=== PATIENT | female | born 1970 | race Caucasian/White ===

== ENCOUNTER 2016-11-23 08:06 | Emergency (ER) | payer OTHER ==
[~2016-11-23] VITALS: Ht 157.4 cm
[~2016-11-23 08:06] MED LIST: AYGESTIN5 MG; CARVEDILOL25 MG; FLEXERIL5 MG PO; LISINOPRIL AND1 TA2 PO; LISINOPRIL40 MG; MOTRIN800 MG PO; PERCOCET 325 MG1 TAB PO; POTASSIUM595 MG; VERAPAMIL120 MG
[2016-11-23] MEDS ORDERED: VERAPAMIL HCL360 MG PO (08:23)
[2016-11-23] MEDS ORDERED: CITALOPRAM HYDR40 MG PO (08:23)
[2016-11-23 08:56] LABS: BASO % 0.5 % (0.0-1.0); HEMATOCRIT 35.7 % (37.0-47.0); HEMOGLOBIN 12.1 g/dl (12.0-16.0); IG # 0.1 10*3/uL (0.0-0.1); LYMPH # 1.2 10*3/uL (1.3-4.4); LYMPH % 15.5 % (27.0-41.0); MEAN CELL VOLUME 85.2 fl (81.0-99.0); MEAN CORPUSCULAR HGB 28.9 pg (27.0-31.0); MEAN CORPUSCULAR HGB CONC 33.9 g/dl (33.0-37.0); MEAN PLATELET VOLUME 8.8 fl (9.6-12.3); MONO # 0.3 10*3/uL (0.1-1.0); MONO % 3.7 % (3.0-9.0); NEUT % 79.6 % (47.0-73.0); PLATELET COUNT AUTOMATED 288 10*3/uL (130-400); RED BLOOD COUNT 4.19 10*6/uL (4.10-5.10); RED CELL DISTRI WIDTH 13.9 % (0-14.5); WHITE BLOOD COUNT 7.6 10*3/uL (4.8-10.8)
[2016-11-23 09:10] LABS: ALBUMIN 3.5 gm/dl (3.1-4.5); ALKALINE PHOSPHATASE 70 U/L (45-117); BILIRUBIN, TOTAL 0.3 mg/dl (0.2-1.0); BUN 11 mg/dl (7-24); CARBON DIOXIDE 29 mmol/L (21-32); CHLORIDE 101 mmol/L (98-107); EST GLOM FILT AFRICAN AMERICAN > 60 ml/min; GLUCOSE 129 mg/dL (65-99); POTASSIUM 3.9 mmol/L (3.5-5.1); SGOT/AST 16 IU/L (3-35); SGPT/ALT 18 U/L (12-78); SODIUM 140 mmol/L (136-145); TOTAL PROTEIN 7.2 gm/dL (6.4-8.2)
[2016-11-23 10:56] LABS: BILIRUBIN NEGATIVE (NEGATIVE); BLOOD NEGATIVE (NEGATIVE); CLARITY SL CLOUDY (CLEAR); COLOR YELLOW (YELLOW); GLUCOSE NEGATIVE (NEGATIVE); KETONE NEGATIVE (NEGATIVE); LEUKO ESTERASE NEGATIVE (NEGATIVE); NITRITE NEGATIVE (NEGATIVE); PH 6.5 (5.0-9.0); PROTEIN NEGATIVE (NEGATIVE); SPECIFIC GRAVITY 1.015 (1.005-1.030); UROBILINOGEN 0.2 E.U./dl (0.2-1.0)
[2016-11-23 11:09] LABS: URINE REFLEX COMMENT NO (NO)
[2016-11-23 11:10] LABS: BACTERIA 1+; MUCOUS 1+
[2016-11-23] MEDS ORDERED: ZOFRAN ODT4 MG SL (11:35)
[2016-11-23] MEDS ORDERED: DRAMAMINE LESS25 MG PO (11:35)
== END 2016-11-23 11:42 | disposition home or self-care (01) ==
LOC: ED 08:06
PROVIDERS: Emergency Medicine
DX: H83.09 Labyrinthitis, unspecified ear (principal); I10 Essential (primary) hypertension; Z79.899 Other long term (current) drug therapy

== ENCOUNTER → 2017-04-21 | Outpatient (CLI) | payer OTHER ==
[~2017-04-21] MED LIST changes: +CITALOPRAM HYDR40 MG PO; +DRAMAMINE LESS25 MG PO; +VERAPAMIL HCL360 MG PO; +ZOFRAN ODT4 MG SL
[2017-04-21 16:18] LABS: ACT PARTIAL THROMBO TIME 32.2 SECONDS (20.8-31.5)
== END | disposition home or self-care (01) ==
LOC: LAB 15:48
PROVIDERS: Dietitian, Registered
DX: E55.9 Vitamin D deficiency, unspecified (principal); R10.13 Epigastric pain; Z71.3 Dietary counseling and surveillance

== ENCOUNTER → 2017-08-07 | Outpatient (CLI) | payer OTHER | END | disposition home or self-care (01) | LOC: MAMMO 07:36 | DX: Z12.31 Encounter for screening mammogram for malignant neoplasm of breast (principal); Z01.419 Encounter for gynecological examination (general) (routine) without abnormal findings ==

== ENCOUNTER 2017-08-31 20:01 | Emergency (ER) | payer OTHER ==
[~2017-08-31] VITALS: Ht 157.4 cm; Wt 127.0 kg
[2017-08-31] MEDS ORDERED: CYCLOBENZAPRINE5 M3 PO (20:54)
[2017-08-31] MEDS ORDERED: NORCO 5-325 TA1 EACH PO (20:54)
[2017-08-31] MEDS ORDERED: NAPROSYN500 MG PO (20:54)
== END 2017-08-31 21:34 | disposition home or self-care (01) ==
LOC: ED 20:01
DX: M54.16 Radiculopathy, lumbar region (principal); Z79.899 Other long term (current) drug therapy

== ENCOUNTER → 2017-10-13 | Outpatient (CLI) | payer OTHER ==
[~2017-10-13] MED LIST changes: +CYCLOBENZAPRINE5 M3 PO; +NAPROSYN500 MG PO; +NORCO 5-325 TA1 EACH PO
[2017-10-13 14:27] LABS: BASO % 0.3 % (0.0-1.0); HEMOGLOBIN 9.7 g/dl (12.0-16.0); LYMPH # 1.3 10*3/uL (1.3-4.4); LYMPH % 11.9 % (27.0-41.0); MEAN CORPUSCULAR HGB 28.8 pg (27.0-31.0); MEAN CORPUSCULAR HGB CONC 32.3 g/dl (33.0-37.0); MEAN PLATELET VOLUME 8.9 fl (9.6-12.3); MONO # 0.7 10*3/uL (0.1-1.0); MONO % 6.2 % (3.0-9.0); NEUT # 9.1 10*3/uL (2.3-7.9); NEUT % 80.1 % (47.0-73.0); NUCLEATED RED BLOOD CELL 0.1 10*3/uL (0.0-0.0); NUCLEATED RED BLOOD CELL 0.5 % (0.0-0.0); PLATELET COUNT AUTOMATED 343 10*3/uL (130-400); RED BLOOD COUNT 3.37 10*6/uL (4.10-5.10); RED CELL DISTRI WIDTH 13.7 % (0-14.5); WHITE BLOOD COUNT 11.3 10*3/uL (4.8-10.8)
[2017-10-13 14:46] LABS: ALBUMIN 3.1 gm/dl (3.1-4.5); ALKALINE PHOSPHATASE 62 U/L (45-117); BUN 16 mg/dl (7-24); CHLORIDE 101 mmol/L (98-107); CREATININE 0.85 mg/dL (0.55-1.02); POTASSIUM 3.8 mmol/L (3.5-5.1); SGOT/AST 33 IU/L (3-35); SGPT/ALT 20 U/L (12-78); SODIUM 140 mmol/L (136-145); TOTAL PROTEIN 6.9 gm/dL (6.4-8.2)
== END | disposition home or self-care (01) ==
LOC: LAB 13:58
PROVIDERS: Physician Assistant
DX: K91.2 Postsurgical malabsorption, not elsewhere classified (principal)

== ENCOUNTER → 2017-11-12 | Outpatient (CLI) | payer OTHER ==
[2017-11-12 12:54] LABS: BASO % 0.5 % (0.0-1.0); HEMATOCRIT 35.9 % (37.0-47.0); HEMOGLOBIN 11.4 g/dl (12.0-16.0); LYMPH # 1.4 10*3/uL (1.3-4.4); MEAN CELL VOLUME 88.6 fl (81.0-99.0); MEAN CORPUSCULAR HGB 28.1 pg (27.0-31.0); MEAN CORPUSCULAR HGB CONC 31.8 g/dl (33.0-37.0); MEAN PLATELET VOLUME 9.8 fl (9.6-12.3); MONO # 0.4 10*3/uL (0.1-1.0); MONO % 6.7 % (3.0-9.0); NEUT # 3.7 10*3/uL (2.3-7.9); NEUT % 67.4 % (47.0-73.0); PLATELET COUNT AUTOMATED 257 10*3/uL (130-400); RED BLOOD COUNT 4.05 10*6/uL (4.10-5.10); RED CELL DISTRI WIDTH 14.6 % (0-14.5); WHITE BLOOD COUNT 5.5 10*3/uL (4.8-10.8)
[2017-11-12 13:03] LABS: ALKALINE PHOSPHATASE 62 U/L (45-117); BUN 7 mg/dl (7-24); CHLORIDE 109 mmol/L (98-107); CHOLESTEROL 154 mg/dL (<200); CREATININE 0.64 mg/dL (0.55-1.02); POTASSIUM 3.7 mmol/L (3.5-5.1); PREALBUMIN 12 mg/dl (20-40); SGOT/AST 15 IU/L (3-35); SGPT/ALT 25 U/L (12-78); SODIUM 143 mmol/L (136-145); TOTAL PROTEIN 6.6 gm/dL (6.4-8.2); TRIGLYCERIDES 120 mg/dl (<150)
[2017-11-12 13:30] LABS: FERRITIN 201.3 ng/mL (10.0-291.0)
== END | disposition home or self-care (01) ==
LOC: LAB 12:08
PROVIDERS: Physician Assistant
DX: K91.2 Postsurgical malabsorption, not elsewhere classified (principal)

== ENCOUNTER → 2018-01-01 | Outpatient (CLI) | payer OTHER ==
[2018-01-01 15:19] LABS: BASO % 0.4 % (0.0-1.0); HEMATOCRIT 37.8 % (37.0-47.0); HEMOGLOBIN 12.1 g/dl (12.0-16.0); LYMPH # 1.9 10*3/uL (1.3-4.4); LYMPH % 26.5 % (27.0-41.0); MEAN CELL VOLUME 87.1 fl (81.0-99.0); MEAN CORPUSCULAR HGB 27.9 pg (27.0-31.0); MEAN PLATELET VOLUME 9.8 fl (9.6-12.3); MONO # 0.5 10*3/uL (0.1-1.0); MONO % 6.3 % (3.0-9.0); NEUT # 4.8 10*3/uL (2.3-7.9); NEUT % 66.7 % (47.0-73.0); PLATELET COUNT AUTOMATED 292 10*3/uL (130-400); RED BLOOD COUNT 4.34 10*6/uL (4.10-5.10); RED CELL DISTRI WIDTH 13.6 % (0-14.5); WHITE BLOOD COUNT 7.1 10*3/uL (4.8-10.8)
[2018-01-01 15:35] LABS: ALBUMIN 3.5 gm/dl (3.1-4.5); ALKALINE PHOSPHATASE 79 U/L (45-117); BUN 11 mg/dl (7-24); CHLORIDE 107 mmol/L (98-107); CHOLESTEROL 158 mg/dL (<200); CREATININE 0.79 mg/dL (0.55-1.02); SGOT/AST 12 IU/L (3-35); SGPT/ALT 23 U/L (12-78); SODIUM 142 mmol/L (136-145)
[2018-01-01 15:36] LABS: PREALBUMIN 13 mg/dl (20-40)
[2018-01-01 15:43] LABS: TRIGLYCERIDES 151 mg/dl (<150)
[2018-01-01 16:09] LABS: FERRITIN 113.8 ng/mL (10.0-291.0); VITAMIN D, 25-HYDROXY 59.1 ng/mL (30-100)
== END | disposition home or self-care (01) ==
LOC: LAB 14:48
PROVIDERS: Physician Assistant
DX: K91.2 Postsurgical malabsorption, not elsewhere classified (principal)

== ENCOUNTER → 2018-04-01 | Outpatient (CLI) | payer OTHER ==
[~2018-04-01] MED LIST changes: -CARVEDILOL25 MG; +CARVEDILOL25 MG PO; +LISINOPRIL20 MG PO; +OMEPRAZOLE D/R20 MG PO; +PROTONIX40 MG PO; +VERAPAMIL HCL120 M1 PO; +VITAMIN D50000 UNIT PO
[2018-04-01 09:05] LABS: BASO % 0.8 % (0.0-1.0); HEMATOCRIT 39.3 % (37.0-47.0); HEMOGLOBIN 12.7 g/dl (12.0-16.0); LYMPH # 1.6 10*3/uL (1.3-4.4); LYMPH % 30.8 % (27.0-41.0); MEAN CELL VOLUME 87.3 fl (81.0-99.0); MEAN CORPUSCULAR HGB 28.2 pg (27.0-31.0); MEAN CORPUSCULAR HGB CONC 32.3 g/dl (33.0-37.0); MEAN PLATELET VOLUME 9.8 fl (9.6-12.3); MONO # 0.3 10*3/uL (0.1-1.0); MONO % 6.2 % (3.0-9.0); NEUT # 3.2 10*3/uL (2.3-7.9); PLATELET COUNT AUTOMATED 276 10*3/uL (130-400); RED CELL DISTRI WIDTH 14.4 % (0-14.5); WHITE BLOOD COUNT 5.2 10*3/uL (4.8-10.8)
[2018-04-01 09:22] LABS: ALBUMIN 3.1 gm/dl (3.1-4.5); ALKALINE PHOSPHATASE 78 U/L (45-117); BUN 7 mg/dl (7-24); CHLORIDE 108 mmol/L (98-107); CHOLESTEROL 160 mg/dL (<200); CREATININE 0.62 mg/dL (0.55-1.02); POTASSIUM 4.1 mmol/L (3.5-5.1); SGOT/AST 9 IU/L (3-35); SGPT/ALT 16 U/L (12-78); SODIUM 144 mmol/L (136-145); TOTAL PROTEIN 6.3 gm/dL (6.4-8.2); TRIGLYCERIDES 86 mg/dl (<150)
[2018-04-01 09:23] LABS: CHOLESTEROL 153 mg/dL (<200); PREALBUMIN 15 mg/dl (20-40); TRIGLYCERIDES 87 mg/dl (<150); VLDL CHOLESTEROL 17 mg/dL (6-40)
[2018-04-01 09:25] LABS: HDL CHOLESTEROL 48 mg/dl (40-60); LDL CHOLESTEROL 88 mg/dL (9-159)
[2018-04-01 09:43] LABS: VITAMIN D, 25-HYDROXY 49.8 ng/mL (30-100)
[2018-04-01 09:44] LABS: FERRITIN 86.7 ng/mL (10.0-291.0)
== END | disposition home or self-care (01) ==
LOC: LAB 08:15
PROVIDERS: Family Medicine; Physician Assistant
DX: K91.2 Postsurgical malabsorption, not elsewhere classified (principal); E78.4 Other hyperlipidemia

== ENCOUNTER 2018-04-09 11:59 | Emergency (ER) | payer OTHER ==
[~2018-04-09] VITALS: Ht 157.4 cm; Wt 98.9 kg
[~2018-04-09 11:59] MED LIST changes: -LISINOPRIL20 MG PO; -OMEPRAZOLE D/R20 MG PO; -PROTONIX40 MG PO; -VERAPAMIL HCL120 M1 PO; -VITAMIN D50000 UNIT PO
[2018-04-09 12:28] LABS: BILIRUBIN 1+ (NEGATIVE); BLOOD NEGATIVE (NEGATIVE); CLARITY CLOUDY (CLEAR); COLOR YELLOW (YELLOW); GLUCOSE NEGATIVE (NEGATIVE); KETONE TRACE (NEGATIVE); NITRITE NEGATIVE (NEGATIVE); PH 5.5 (5.0-9.0); SPECIFIC GRAVITY 1.025 (1.005-1.030); UROBILINOGEN 0.2 E.U./dl (0.2-1.0)
[2018-04-09 12:47] LABS: BACTERIA 2+; EPITHELIAL CELLS 20-25; MUCOUS 1+
[2018-04-09 12:48] LABS: LEUKO ESTERASE NEGATIVE (NEGATIVE)
[2018-04-09 12:52] LABS: BASO % 0.5 % (0.0-1.0); HEMATOCRIT 37.7 % (37.0-47.0); HEMOGLOBIN 12.6 g/dl (12.0-16.0); LYMPH # 1.1 10*3/uL (1.3-4.4); LYMPH % 13.7 % (27.0-41.0); MEAN CELL VOLUME 87.7 fl (81.0-99.0); MEAN CORPUSCULAR HGB 29.3 pg (27.0-31.0); MEAN CORPUSCULAR HGB CONC 33.4 g/dl (33.0-37.0); MEAN PLATELET VOLUME 9.4 fl (9.6-12.3); MONO # 0.4 10*3/uL (0.1-1.0); MONO % 5.2 % (3.0-9.0); NEUT # 6.2 10*3/uL (2.3-7.9); NEUT % 80.3 % (47.0-73.0); PLATELET COUNT AUTOMATED 254 10*3/uL (130-400); RED CELL DISTRI WIDTH 14.4 % (0-14.5); WHITE BLOOD COUNT 7.7 10*3/uL (4.8-10.8)
[2018-04-09 13:10] LABS: ALBUMIN 3.1 gm/dl (3.1-4.5); ALKALINE PHOSPHATASE 100 U/L (45-117); BUN 7 mg/dl (7-24); CHLORIDE 109 mmol/L (98-107); CREATININE 0.59 mg/dL (0.55-1.02); LIPASE 71 U/L (73-393); POTASSIUM 4.5 mmol/L (3.5-5.1); SGOT/AST 140 IU/L (3-35); SGPT/ALT 80 U/L (12-78); SODIUM 141 mmol/L (136-145); TOTAL PROTEIN 6.4 gm/dL (6.4-8.2)
[2018-07-01] MEDS ORDERED: VERAPAMIL HCL120 M1 PO (19:38)
[2018-07-01] MEDS ORDERED: LISINOPRIL20 MG PO (19:39)
[2018-07-01] MEDS ORDERED: VITAMIN D50000 UNIT PO (19:40)
[2018-07-01] MEDS ORDERED: OMEPRAZOLE D/R20 MG PO (19:40)
[2018-07-04] MEDS ORDERED: PROTONIX40 MG PO (10:57)
== END 2018-04-09 18:05 | disposition home or self-care (01) ==
LOC: ED 11:59
PROVIDERS: Nurse Practitioner Family
DX: K80.20 Calculus of gallbladder without cholecystitis without obstruction (principal); K80.50 Calculus of bile duct without cholangitis or cholecystitis without obstruction; R10.11 Right upper quadrant pain; R10.13 Epigastric pain; Z98.51 Tubal ligation status; Z79.899 Other long term (current) drug therapy; Z98.890 Other specified postprocedural states; Z98.84 Bariatric surgery status

== ENCOUNTER → 2018-09-28 | Outpatient (CLI) | payer OTHER ==
[~2018-09-28] MED LIST changes: +Carafate1 GM/10 ML PO; +LISINOPRIL20 MG PO; +OMEPRAZOLE D/R20 MG PO; +PROTONIX40 MG PO; +VERAPAMIL HCL120 M1 PO; +VITAMIN D32000 UNI1 PO; +VITAMIN D50000 UNIT PO
[2018-09-28 15:47] LABS: BASO # 0.1 10*3/uL (0.0-0.1); EOS % 0.2 % (1.0-4.0); HEMATOCRIT 38.3 % (37.0-47.0); HEMOGLOBIN 12.7 g/dl (12.0-16.0); LYMPH # 1.9 10*3/uL (1.3-4.4); LYMPH % 37.4 % (27.0-41.0); MEAN CELL VOLUME 88.5 fl (81.0-99.0); MEAN CORPUSCULAR HGB 29.3 pg (27.0-31.0); MEAN CORPUSCULAR HGB CONC 33.2 g/dl (33.0-37.0); MEAN PLATELET VOLUME 9.3 fl (9.6-12.3); MONO # 0.3 10*3/uL (0.1-1.0); MONO % 6.4 % (3.0-9.0); NEUT # 2.8 10*3/uL (2.3-7.9); NEUT % 54.8 % (47.0-73.0); PLATELET COUNT AUTOMATED 240 10*3/uL (130-400); RED BLOOD COUNT 4.33 10*6/uL (4.10-5.10); RED CELL DISTRI WIDTH 13.2 % (0-14.5)
[2018-09-28 16:18] LABS: ALBUMIN 3.2 gm/dl (3.1-4.5); ALKALINE PHOSPHATASE 63 U/L (45-117); BUN 6 mg/dl (7-24); CHLORIDE 107 mmol/L (98-107); CHOLESTEROL 146 mg/dL (<200); CREATININE 0.62 mg/dL (0.55-1.02); PREALBUMIN 16 mg/dl (20-40); SGOT/AST 15 IU/L (3-35); SGPT/ALT 20 U/L (12-78); SODIUM 139 mmol/L (136-145); TOTAL PROTEIN 6.3 gm/dL (6.4-8.2); TRIGLYCERIDES 96 mg/dl (<150)
== END | disposition home or self-care (01) ==
LOC: LAB 15:15
PROVIDERS: Physician Assistant
DX: K91.2 Postsurgical malabsorption, not elsewhere classified (principal)

== ENCOUNTER 2018-12-26 20:13 | Inpatient (IN) | payer OTHER ==
[~2018-12-26] VITALS: Ht 157.2 cm; Wt 83.0 kg
--- NOTE | ~2018-12-26 | EKG ---
[place], [place] ELECTROCARDIOGRAM REPORT NAME: ADDY TALAVERA UNIT #: [id number] ROOM: 529 DOCTOR: YOLA DRAFT REPORT BIRTHDATE: [birth year] [facility] Test Date: 2018-12-26 Test Time: 20:42:55 Pat Name: ADDY TALAVERA Department: Room: 529 Gender: F Housekeeper: : 1970 Requested By: BENJI MURPHY PA-C Order Number: [id number] Reading MD: Kendra Ma MD Measurements Intervals [place] Rate: 86 P: 80 ND: 147 QRS: 12 QRSD: 96 T: 93 QT: 349 QTc: 418 Interpretive Statements Sinus rhythm Nonspecific T abnormalities, lateral leads Electronically Signed On 12-28-2018 14:55:57 PDT by Kendra Ma MD CM:EKGRPT:ELECTROCARDIOGRAM REPORT 41 [id number] BENJI MURPHY PA-C EPIPHANY DRAFT REPORT BEJNI MURPHY PA-C
--- NOTE | ~2018-12-26 | O ---
[place], [place] OPERATIVE NOTE [id number] UNIT #: [id number] ROOM: 529 DOCTOR: GUILLERMO GRAHAM,ROSITA BIRTHDATE: [birth year] DOS: 12/28/2018 The patient has presented with GI bleed. PROCEDURE: Today's procedure part of investigation is colonoscopy. PREMEDICATION: Propofol. SCOPE: Olympus forward-viewing colonoscope 10L video. REPORT: After putting the patient in left lateral position and application of lubricant to the scope, the scope was introduced. Thereafter, under direct visualization, advanced through the length of colon without difficulty. Base of the cecum explored, appendiceal orifice identified, ileocecal valve was defined. No acute pathology was seen. The patient extubated, tolerated the procedure well. IMPRESSION: Normal colonoscopic examination. Follow-up colonoscopy in 10 years unless there are symptoms in which case follow-up should be as needed. Source of bleed has been all upper GI bleed that has already been addressed in above report. Workup in progress. ROSITA LI MD CM:OPRECORD:OPERATIVE NOTE 56 0630 ROSITA LI MD 01/04/19 0853 interface
--- NOTE | ~2018-12-26 | PR ---
[place], [place] PROGRESS NOTE NAME: ADDY TALAVERA UNIT #: [id number] ROOM: 529 DOCTOR: ROSITA LI MD BIRTHDATE: [birth year] DOS: 12/30/2018 GASTROENDOSCOPIC PROGRESS REPORT HISTORY OF PRESENT ILLNESS: This is a GI bleeding patient, who presented with anemia, 48-year-old endoscopic assessment showed aggressive ulceration at the anastomotic site and the clot at the anastomotic site. Biopsy has been obtained. Hemostasis therapy at the anastomotic site for bleeding clot has undertaken. H and H followup has been organized; H and H is pending today. Blood cultures have been obtained. Urine cultures have been obtained. They are both negative. Latest H and H was 9 and 28 with a followup on 12/28/2018, H and H dropped to 8 and 25. REVIEW OF SYSTEMS: HEENT: Denies double vision or blurred vision. RESPIRATORY: Denies shortness of breath. CARDIOVASCULAR: Denies chest pain. DIGESTIVE SYSTEM: Anastomotic site ulcer, bleeding, clot that site. PHYSICAL EXAMINATION: VITAL SIGNS: Stable. HEENT: Within normal limit. NECK: Supple, no thyromegaly, no cervical lymphadenopathy. CHEST: Symmetric anatomy, equal expansion. HEART: Normal sinus rhythm, no gallop, no murmur. ABDOMEN: Soft. No hepato-organomegaly. Bowel sounds present. EXTREMITIES: No cyanosis, no pedal edema. NEUROLOGIC: Alert, oriented to time, place, person. IMPRESSION: Anastomotic site large ulcer and bleeding vasculature, status post epinephrine hemostasis therapy. We are going to continue with aggressive ulcer therapy with Carafate and Protonix. She is status post epinephrine injection therapy of the bleeding anastomotic site. Her H and H pending today yet and we are looking forward to see what the status of that result is. Her colonoscopy has been normal. So, source of GI bleed soley upper GI. Thank you very much indeed. She is still going to be kept on ice cream, milk shake and liquid diet till today H and H is known and if needed transfusion. [place], [place] PROGRESS NOTE NAME: ADDY TALAVERA UNIT #: [id number] ROOM: 529 DOCTOR: ROSITA LI MD BIRTHDATE: [birth year] ROSITA LI MD CM:PNSUGEY [id number] ROSITA LI MD 01/27/19 0724 interface
--- NOTE | ~2018-12-26 | CON ---
[place], [place] REPORT OF CONSULTATION NAME: ADDY TALAVERA UNIT #: [id number] ROOM: 529 DOCTOR: GUILLERMO GRAHAMROSITA BIRTHDATE: [birth year] DOS: 12/28/2018 GASTROENDOSCOPIC CONSULTATION HISTORY OF PRESENT ILLNESS: This is a 48-year-old patient who presented with chief complaint of GI bleed, undergoing investigation. Initial white blood cell 10, H and H of 12 and 36, differential within normal limits. INR 1.0. Urinalysis 4+ bacteria. Comprehensive metabolic panel: GFR greater than 60. Electrolytes balance, liver function test normal. Lipase 49. Lactic acid 1.1. CT scan of the abdomen and pelvis was reviewed. Wall thickening and stranding around the Josiah-en-Y was noticed epigastric region the posterior gastric anastomotic site. Chest x-ray was normal. Hemoglobin remained about 9 and 28. Urine culture, no bacteria. Blood culture negative. PAST MEDICAL HISTORY: Associated with obesity, gastric bypass, biliary colic, atherosclerosis, hypertension, labyrinthitis, and steatohepatitis. PAST SURGICAL HISTORY: Cholecystectomy, gastric bypass. SOCIAL HISTORY: Social alcohol consumer. Past smoker. FAMILY HISTORY: Noncontributory. ALLERGIES: RED HOT CINNAMON. MEDICATIONS: List has been reviewed. The patient has been on pantoprazole 40 mg daily. REVIEW OF SYSTEMS: HEENT: Denies double vision, blurred vision. RESPIRATORY: Denies shortness of breath. CARDIOVASCULAR: Denies chest pain. DIGESTIVE SYSTEM: GI bleed. PHYSICAL EXAMINATION: VITAL SIGNS: Stable. HEENT: Within normal limit. NECK: Supple, no thyromegaly. CHEST: Symmetric anatomy, equal expansion. No wheeze, no rhonchi. HEART: Normal sinus rhythm, no gallop, no murmur. ABDOMEN: Soft. No hepato-organomegaly. Bowel sounds present. No pulsatile mass. EXTREMITIES: No cyanosis, no pedal edema. NEUROLOGIC: Alert, oriented to time, place, person. IMPRESSION: Gastrointestinal bleed, etiology to be defined, upper vs. Lower, lower ruling out anastomotic site, ulcer, workup in progress. Labs reviewed, records reviewed. [place], [place] REPORT OF CONSULTATION NAME: ADDY TALAVERA [place] UNIT #: [id number] ROOM: 529 DOCTOR: GUILLERMO GRAHAM,ROSITA BIRTHDATE: [birth year] ROSITA LI MD CM:CONSTR:REPORT OF CONSULTATION 56 01/27/19 0726 interface
--- NOTE | ~2018-12-26 | O ---
[place], [place] OPERATIVE NOTE [id number] UN[facility] #: [id number] ROOM: 529 DOCTOR: GUILLERMO GRAHAM,ROSITA BIRTHDATE: [birth year] DOS: 12/28/2018 The patient has presented with chief complaint of GI bleed, undergoing investigation. PROCEDURE: Today's procedure part of investigation is panendoscopy. PREMEDICATION: Propofol. SCOPE: Olympus forward-viewing gastroscope Q10 video. REPORT: After putting the patient in left lateral position and application of lubricant to the scope, the scope was introduced. Thereafter, under direct visualization, I advanced through gastric pouch. As we get to Josiah-en-Y limb, 3/4 of the anastomotic site is ulcerated and at spot necrotic and active clots, fresh sitting at the anastomotic site. A 3 mL of epinephrine in divided doses was injected around the periphery of bleeding vessel. This was controlled. Small biopsy from the margin of anastomotic site obtained for documentation. Enteric site was inspected. The patient extubated, tolerated the procedure well. IMPRESSION: Large semicircular anastomotic site ulcer, status post biopsies, status post epinephrine, hemostasis therapy of bleeding vessel at the anastomotic site. PLAN AND DISCUSSION: If she is status post gastric bypass, aggressive ulcer therapy with Protonix 40 mg b.i.d., Carafate 2 grams slurry q.6h., Sandostatin drip 50 mcg now loading on 50 mcg per hour till 6:00 a.m. and then 25 mcg per hour for 24 hours, ice cream, milk shake, ice water as diet and clinical reassessment. I am going to proceed with colonoscopy. ROSITA LI MD CM:OPRECORD:OPERATIVE NOTE 56 7 ROSITA LI MD 12/29/18627 interface
[~2018-12-26 20:13] MED LIST changes: -Carafate1 GM/10 ML PO; -VITAMIN D32000 UNI1 PO
[2018-12-26 20:17] VITALS: BP 165/84
--- NOTE | 2018-12-26 20:54 | NUR ---
PT WITH INSTANT PAIN RELIEF FROM GI COCKTAIL.
[2018-12-26 20:59] LABS: BASO # 0.1 10*3/uL (0.0-0.1); BASO % 0.8 % (0.0-1.0); HEMATOCRIT 36.1 % (37.0-47.0); HEMOGLOBIN 12.2 g/dl (12.0-16.0); LYMPH # 2.2 10*3/uL (1.3-4.4); LYMPH % 21.1 % (27.0-41.0); MEAN CELL VOLUME 88.9 fl (81.0-99.0); MEAN CORPUSCULAR HGB CONC 33.8 g/dl (33.0-37.0); MEAN PLATELET VOLUME 9.2 fl (9.6-12.3); MONO # 0.6 10*3/uL (0.1-1.0); MONO % 5.4 % (3.0-9.0); NEUT # 7.7 10*3/uL (2.3-7.9); NEUT % 72.4 % (47.0-73.0); PLATELET COUNT AUTOMATED 313 10*3/uL (130-400); RED BLOOD COUNT 4.06 10*6/uL (4.10-5.10); RED CELL DISTRI WIDTH 12.8 % (0-14.5); WHITE BLOOD COUNT 10.6 10*3/uL (4.8-10.8)
[2018-12-26 21:07] LABS: BILIRUBIN NEGATIVE (NEGATIVE); BLOOD NEGATIVE (NEGATIVE); CLARITY SL CLOUDY (CLEAR); COLOR YELLOW (YELLOW); GLUCOSE NEGATIVE (NEGATIVE); KETONE NEGATIVE (NEGATIVE); LEUKO ESTERASE 1+ (NEGATIVE); NITRITE NEGATIVE (NEGATIVE)
[2018-12-26 21:10] LABS: ACT PARTIAL THROMBO TIME 30.8 SECONDS (20.0-32.1)
[2018-12-26 21:17] LABS: BACTERIA 4+; EPITHELIAL CELLS 31-40
[2018-12-26 21:19] LABS: ALBUMIN 2.9 gm/dl (3.1-4.5); ALKALINE PHOSPHATASE 66 U/L (45-117); BUN 16 mg/dl (7-24); CHLORIDE 109 mmol/L (98-107); LIPASE 49 U/L (73-393); SGOT/AST 5 IU/L (3-35); SGPT/ALT 18 U/L (12-78); SODIUM 141 mmol/L (136-145); TOTAL PROTEIN 6.6 gm/dL (6.4-8.2)
[2018-12-26 21:20] LABS: TROPONIN I < 0.015 ng/ml (<0.045)
[2018-12-26 23:00] VITALS: BP 144/74
--- NOTE | 2018-12-26 23:30 | NUR ---
PATIENT REFUSING HEART MONITOR AT THIS TIME.
--- NOTE | 2018-12-27 00:03 | NUR ---
A 48, admitted to , under the services of CRISS Costello DO with a diagnosis of UTI,GIBLEED,GASTRITIS. Chief complaint is ABDOMINAL PAIN. Patient arrived via ambulatory from ER. Monitor applied. Initial assessment completed. Vital signs taken and recorded. CRISS COSTELLO DO notified of admission to the unit. Orders received. See assessment for past medical history, medications and allergies. Patient and/or family oriented to unit. [facility] visitation policy reviewed. Clothing/patient valuable form completed. JASE WATERS
[2018-12-27 00:18] VITALS: BP 148/71
--- NOTE | 2018-12-27 00:46 | NUR ---
PATIENT REFUSED TRANSITIONAL CARE LIAISON.
--- NOTE | 2018-12-27 00:52 | NUR ---
DR. CALVO NOTIFIED THAT PATIENT'S HOME MEDICATIONS HAVE BEEN UPDATED AND THAT PATIENT REFUSES TO WEAR A INSURANCE ADMINISTRATOR.
[2018-12-27 01:11] VITALS: BP 148/71
--- NOTE | 2018-12-27 02:50 | NUR ---
PATIENT RESTING IN BED. IV FLUIDS INFUSING ORDERED. RESPIRATIONS EASY NONLABORED ON ROOM AIR. NO SIGNS OR SYMPTOMS OF DISTRESS.
--- NOTE | 2018-12-27 04:10 | NUR ---
PATIENT SLEEPING IN BED, NO SIGNS OR SYMPTOMS OF DISTRESS. RESPIRATIONS EASY NONLABORED ON ROOM AIR. IV FLUIDS INFUSING ORDERED.
[2018-12-27 06:17] LABS: BASO % 0.6 % (0.0-1.0); LYMPH # 1.8 10*3/uL (1.3-4.4); LYMPH % 28.7 % (27.0-41.0); MEAN CORPUSCULAR HGB 29.5 pg (27.0-31.0); MEAN CORPUSCULAR HGB CONC 32.8 g/dl (33.0-37.0); MEAN PLATELET VOLUME 9.3 fl (9.6-12.3); MONO # 0.4 10*3/uL (0.1-1.0); MONO % 5.7 % (3.0-9.0); NEUT # 4.1 10*3/uL (2.3-7.9); NEUT % 64.7 % (47.0-73.0); PLATELET COUNT AUTOMATED 226 10*3/uL (130-400); RED BLOOD COUNT 3.19 10*6/uL (4.10-5.10); RED CELL DISTRI WIDTH 12.7 % (0-14.5); WHITE BLOOD COUNT 6.3 10*3/uL (4.8-10.8)
[2018-12-27 06:40] LABS: BUN 22 mg/dl (7-24); CHLORIDE 111 mmol/L (98-107); POTASSIUM 4.2 mmol/L (3.5-5.1); SODIUM 141 mmol/L (136-145)
[2018-12-27 06:41] LABS: CREATININE 0.52 mg/dL (0.55-1.02); PHOSPHOROUS 3.1 mg/dL (2.5-4.9)
[2018-12-27 06:43] LABS: HEMATOCRIT 28.7 % (37.0-47.0); HEMOGLOBIN 9.4 g/dl (12.0-16.0)
--- NOTE | 2018-12-27 07:11 | NUR ---
DR. LI CONSULT CALLED. ORDERS RECEIVED
[2018-12-27 08:00] VITALS: BP 119/59
[2018-12-27 12:00] VITALS: BP 129/71
[2018-12-27 16:00] VITALS: BP 106/48; BP 117/57
[2018-12-27 16:27] LABS: HEMATOCRIT 28.4 % (37.0-47.0); HEMOGLOBIN 9.4 g/dl (12.0-16.0)
--- NOTE | 2018-12-27 18:14 | NUR ---
DR STACK UPDATED ON PATIENT HAVING VERY DARK BLOODY STOOLS. NOTIFIED THAT DR LI HAS ORDERED H/H IN MORNING. NO NEW ORDERS RECEIVED.
--- NOTE | 2018-12-27 18:15 | NUR ---
PATIENT RESTING QUIETLY IN BED. AWARE OF [facility] CONSULT AND ORDER FOR NPO STATUS AT MIDNIGHT UNTIL AFTER H/H IS RESULTED IN AM. NO S/S OF DISTRESS. CALL LIGHT WITHIN REACH.
[2018-12-27 20:00] VITALS: BP 120/62
[2018-12-28] VITALS (7 sets, daily range): BP systolic 114–184; BP diastolic 63–86
--- NOTE | 2018-12-28 | NUR ---
PT REFUSED ORTHOSTATIC BP AT THIS TIME.
--- NOTE | 2018-12-28 05:05 | NUR ---
24 HR chart check completed.
[2018-12-28 06:26] LABS: HEMATOCRIT 25.2 % (37.0-47.0); HEMOGLOBIN 8.3 g/dl (12.0-16.0)
--- NOTE | 2018-12-28 10:00 | NUR ---
BEGAN COLO PREP.
--- NOTE | 2018-12-28 11:25 | NUR ---
PT IS O2 2L HS DEPENDANT AND HOME MEDICATIONS NEED TO BE CONTINUED. DR LESTER NOTIFIED
--- NOTE | 2018-12-28 13:30 | NUR ---
PT TOLERATING COLO PREP WELL.
--- NOTE | 2018-12-28 15:56 | NUR ---
Antenna Installer in to talk to patient. Patient states lives at HOME with SONS. There are NO steps in the home. Physician: JAVIER CEJA Pharmacy: [facility] health services: NO Patient's level of ADLs: INDEPENDENT Patient has working utilities: YES DME: HOME OXYGEN AT BEDTIME Follow-up physician's appointment after d/c: WILL BE MADE BY HOSPITALIST NURSE DIRECTOR ON DISCHARGE. Does patient want to access PORTAL?: NO Discharge plan PT STATES SHE LIVES AT HOME WITH HER SONS AND IS INDEPENDENT IN HER CARE. STATES SHE WILL RETURN HOME ON DISCHARGE WITH NO NEW NEEDS. WILL HAVE A RIDE HOME. WILL CONTINUE TO FOLLOW.. CECE FERNÁNDEZ
--- NOTE | 2018-12-28 20:21 | NUR ---
PT RETURNED FROM SURGERY. VITALS WNL. ORDERS RECEIVED FROM DR LI
[2018-12-29] VITALS: BP 121/66
[2018-12-29 08:00] VITALS: BP 134/73
[2018-12-29 12:00] VITALS: BP 135/62
--- NOTE | 2018-12-29 13:11 | NUR ---
PT CONTINUES TO DENY NEEDS ON DISCHARGE. WILL CONTINUE TO FOLLOW.
[2018-12-29 16:00] VITALS: BP 119/67
[2018-12-29 20:00] VITALS: BP 142/69
--- NOTE | 2018-12-29 21:00 | NUR ---
PATIENT IS RESTING IN BED WITH EASY AND REGULAR RESPERS ON ROOM AIR. ASSESSMENT IS COMPLETE WITH NO C/O OR S/S OF DISTRESS NOTED AT THIS TIME. BED IS LOW, LOCKED, AND CALL LIGHT IS WITHIN REACH. 2200 MEDICATION PROVED AND PATIENT TOLERATED WELL. SEE SHIFT ASSESSMENT.
[2018-12-30] VITALS: BP 125/59
[2018-12-30 07:43] VITALS: BP 152/72
[2018-12-30 11:27] VITALS: BP 135/66
--- NOTE | 2018-12-30 11:27 | NUR ---
CALLED REGARDING CLARIFICATION OF SANDOSTATIN GTT ORDER. SANDOSTATIN GTT TO BE DISCONTINUED TOMORROW MORNING (12/31/18).
--- NOTE | 2018-12-30 12:47 | NUR ---
PT CONTINUES TO DENY HOME NEEDS. WILL CONTINUE TO FOLLOW.
[2018-12-30 16:00] VITALS: BP 138/69
--- NOTE | 2018-12-30 16:45 | NUR ---
ON FLOOR AND UPDATED ON PLAN OF CARE.
[2018-12-30 18:11] LABS: HEMATOCRIT 30.3 % (37.0-47.0); HEMOGLOBIN 10.1 g/dl (12.0-16.0)
[2018-12-30 20:00] VITALS: BP 160/74
--- NOTE | 2018-12-30 21:30 | NUR ---
PATIENT IS RESTING IN BED WITH EASY AND REGULAR RESPERS ON ROOM AIR. ASSESSMENT IS COMPLETE WITH NO C/O OR S/S OF DISTRESS NOTED AT THIS TIME. BED IS LOW, LOCKED, AND CALL LIGHT IS WITHIN REACH. SANDOSTATIN GTT RUNNING AT THIS TIME ORDERED. SEE SHIFT ASSESSMENT Neurological: awake,alert,oriented x3 Respiratory: easy, regular,no distress Breath sounds: clear t/o all lung mena Cough: none noted on assessment Cardiovascular: no problem, denies cp/pressure, no edema, pp+ Gastrointestinal: hypoactivex4 quads, denies n/v/d/c, abd soft, nt/nd Genito/Urinary: no problem, denies dysuria Musculoskeketal: Ambulatory: steady gait, skin w/d and intact. HALIMA FORBES A
--- NOTE | 2018-12-30 23:00 | NUR ---
2200 AND 0000 MEDICATIONS GIVEN AT THIS TIME, PATIENT TOLERATED WELL. CALL LIGHT IS WITHIN REACH.
[2018-12-31] VITALS: BP 146/71
--- NOTE | 2018-12-31 02:03 | NUR ---
Patient sleeping. Respirations relaxed and easy. Siderails up x2. Call light is within reach. HALIMA FORBES
[2018-12-31 06:35] LABS: BASO # 0.1 10*3/uL (0.0-0.1); BASO % 1.1 % (0.0-1.0); HEMATOCRIT 27.1 % (37.0-47.0); LYMPH % 36.3 % (27.0-41.0); MEAN CORPUSCULAR HGB 29.9 pg (27.0-31.0); MEAN CORPUSCULAR HGB CONC 33.2 g/dl (33.0-37.0); MEAN PLATELET VOLUME 9.7 fl (9.6-12.3); MONO # 0.2 10*3/uL (0.1-1.0); MONO % 4.2 % (3.0-9.0); NEUT # 3.1 10*3/uL (2.3-7.9); PLATELET COUNT AUTOMATED 284 10*3/uL (130-400); RED BLOOD COUNT 3.01 10*6/uL (4.10-5.10); RED CELL DISTRI WIDTH 12.7 % (0-14.5); WHITE BLOOD COUNT 5.4 10*3/uL (4.8-10.8)
[2018-12-31 07:06] LABS: BUN 8 mg/dl (7-24); CHLORIDE 108 mmol/L (98-107); CREATININE 0.61 mg/dL (0.55-1.02); POTASSIUM 3.7 mmol/L (3.5-5.1); SODIUM 143 mmol/L (136-145)
[2018-12-31 08:00] VITALS: BP 136/68
[2018-12-31 08:16] VITALS: BP 136/67
--- NOTE | 2018-12-31 08:35 | NUR ---
CALLED WITH HGB/HCT RESULTS. NEW ORDERS RECEIVED.
[2018-12-31 09:34] VITALS: BP 138/70
[2018-12-31 11:14] VITALS: BP 118/57
--- NOTE | 2018-12-31 12:24 | NUR ---
PT STATES SHE WILL RETURN HOME WHEN MEDICALLY STABLE WITH NO NEEDS. WILL CONTINUE TO FOLLOW.
[2018-12-31 14:27] LABS: HEMATOCRIT 27.9 % (37.0-47.0); HEMOGLOBIN 9.3 g/dl (12.0-16.0)
--- NOTE | 2018-12-31 15:12 | NUR ---
NOTIFIED REGARDING 1400 HGB/HCT. NEW ORDERS RECEIVED.
[2018-12-31] MEDS ORDERED: Carafate1 GM/10 ML PO (16:02)
[2018-12-31] MEDS ORDERED: PROTONIX40 MG PO (16:02)
[2018-12-31] MEDS ORDERED: VITAMIN D32000 UNI1 PO (16:02)
--- NOTE | 2018-12-31 16:45 | NUR ---
Discharge instructions reviewed with patient/family. Patient receptive and verbalizes understanding. Follow-up care arranged. Written instructions given to patient/family. DIMAS VARGHESE.
== END 2018-12-31 16:45 | disposition home or self-care (01) | DRG 378 ==
LOC: ED 20:13 → EDHOLD 22:48 → 5E 22:48
PROVIDERS: Internal Medicine; Internal Medicine Gastroenterology; Physician Assistant; Student in an Organized Health Care Education/Training Program; ADMIT Internal Medicine
PROC: 3E0G8GC Introduction of Other Therapeutic Substance into Upper GI, Via Natural or Artificial Opening Endoscopic (ICD-10-PCS; principal; 2018-12-28)
PROC: 0DJD8ZZ Inspection of Lower Intestinal Tract, Via Natural or Artificial Opening Endoscopic (ICD-10-PCS; principal; 2018-12-28)
PROC: 0DB68ZX Excision of Stomach, Via Natural or Artificial Opening Endoscopic, Diagnostic (ICD-10-PCS; principal; 2018-12-28)
DX: K27.4 Chronic or unspecified peptic ulcer, site unspecified, with hemorrhage (principal); N39.0 Urinary tract infection, site not specified; E44.0 Moderate protein-calorie malnutrition; K29.71 Gastritis, unspecified, with bleeding; K52.9 Noninfective gastroenteritis and colitis, unspecified; K21.9 Gastro-esophageal reflux disease without esophagitis; I10 Essential (primary) hypertension; E66.09 Other obesity due to excess calories; E87.8 Other disorders of electrolyte and fluid balance, not elsewhere classified; R73.9 Hyperglycemia, unspecified; M54.16 Radiculopathy, lumbar region; E55.9 Vitamin D deficiency, unspecified; K76.0 Fatty (change of) liver, not elsewhere classified; I70.90 Unspecified atherosclerosis; Z90.49 Acquired absence of other specified parts of digestive tract; Z79.899 Other long term (current) drug therapy; Z98.84 Bariatric surgery status; Z98.51 Tubal ligation status; Z87.891 Personal history of nicotine dependence; Z82.49 Family history of ischemic heart disease and other diseases of the circulatory system; Z87.11 Personal history of peptic ulcer disease; Z68.33 Body mass index [BMI] 33.0-33.9, adult

== ENCOUNTER → 2019-01-11 | Outpatient (CLI) | payer OTHER ==
[~2019-01-11] MED LIST changes: +Carafate1 GM/10 ML PO; +VITAMIN D32000 UNI1 PO
[2019-01-11 15:31] LABS: BASO # 0.1 10*3/uL (0.0-0.1); BASO % 0.9 % (0.0-1.0); EOS % 0.4 % (1.0-4.0); HEMATOCRIT 29.7 % (37.0-47.0); HEMOGLOBIN 9.6 g/dl (12.0-16.0); LYMPH % 36.2 % (27.0-41.0); MEAN CELL VOLUME 88.4 fl (81.0-99.0); MEAN CORPUSCULAR HGB 28.6 pg (27.0-31.0); MEAN CORPUSCULAR HGB CONC 32.3 g/dl (33.0-37.0); MEAN PLATELET VOLUME 8.7 fl (9.6-12.3); MONO # 0.4 10*3/uL (0.1-1.0); NEUT % 55.1 % (47.0-73.0); PLATELET COUNT AUTOMATED 351 10*3/uL (130-400); RED BLOOD COUNT 3.36 10*6/uL (4.10-5.10); RED CELL DISTRI WIDTH 12.7 % (0-14.5); WHITE BLOOD COUNT 5.4 10*3/uL (4.8-10.8)
== END | disposition home or self-care (01) ==
LOC: LAB 15:00
PROVIDERS: Internal Medicine
DX: K27.4 Chronic or unspecified peptic ulcer, site unspecified, with hemorrhage (principal)

== ENCOUNTER → 2019-03-30 | Outpatient (CLI) | payer OTHER ==
[2019-03-30 16:36] LABS: ALBUMIN 2.9 gm/dl (3.1-4.5); ALKALINE PHOSPHATASE 79 U/L (45-117); BUN 8 mg/dl (7-24); CHLORIDE 108 mmol/L (98-107); CHOLESTEROL 133 mg/dL (<200); CREATININE 0.53 mg/dL (0.55-1.02); POTASSIUM 4.4 mmol/L (3.5-5.1); SGOT/AST 17 IU/L (3-35); SGPT/ALT 25 U/L (12-78); SODIUM 141 mmol/L (136-145); TOTAL PROTEIN 6.1 gm/dL (6.4-8.2); TRIGLYCERIDES 84 mg/dl (<150)
[2019-03-30 16:37] LABS: PREALBUMIN 13 mg/dl (20-40)
== END | disposition home or self-care (01) ==
LOC: LAB 15:39
PROVIDERS: Physician Assistant
DX: K91.2 Postsurgical malabsorption, not elsewhere classified (principal)

== ENCOUNTER → 2020-01-04 | Outpatient (CLI) | payer OTHER ==
[2020-01-04 15:58] LABS: BASO # 0.1 10*3/uL (0.0-0.1); BASO % 1.4 % (0.0-1.0); EOS # 0.1 10*3/uL (0.0-0.4); EOS % 1.4 % (1.0-4.0); HEMATOCRIT 38.9 % (37.0-47.0); LYMPH # 1.9 10*3/uL (1.3-4.4); LYMPH % 37.3 % (27.0-41.0); MEAN CORPUSCULAR HGB CONC 32.9 g/dl (33.0-37.0); MEAN PLATELET VOLUME 9.1 fl (9.6-12.3); MONO # 0.4 10*3/uL (0.1-1.0); MONO % 7.5 % (3.0-9.0); NEUT # 2.6 10*3/uL (2.3-7.9); NEUT % 52.2 % (47.0-73.0); PLATELET COUNT AUTOMATED 286 10*3/uL (130-400); RED BLOOD COUNT 4.42 10*6/uL (4.10-5.10); RED CELL DISTRI WIDTH 12.9 % (0-14.5)
[2020-01-04 16:14] LABS: ALBUMIN 3.5 gm/dl (3.1-4.5); ALKALINE PHOSPHATASE 72 U/L (45-117); BUN 10 mg/dl (7-24); CHLORIDE 110 mmol/L (98-107); CHOLESTEROL 163 mg/dL (<200); CREATININE 0.71 mg/dL (0.55-1.02); POTASSIUM 4.3 mmol/L (3.5-5.1); PREALBUMIN 20 mg/dl (20-40); SGOT/AST 20 IU/L (3-35); SGPT/ALT 28 U/L (12-78); SODIUM 140 mmol/L (136-145); TOTAL PROTEIN 6.9 gm/dL (6.4-8.2); TRIGLYCERIDES 109 mg/dl (<150)
[2020-01-04 16:33] LABS: FERRITIN 26.7 ng/mL (10.0-291.0); VITAMIN D, 25-HYDROXY 62.7 ng/mL (30-100)
== END | disposition home or self-care (01) ==
LOC: LAB 15:40
PROVIDERS: Physician Assistant
DX: K91.2 Postsurgical malabsorption, not elsewhere classified (principal); E55.9 Vitamin D deficiency, unspecified

== ENCOUNTER → 2021-08-01 | Outpatient (CLI) | payer OTHER | END | disposition home or self-care (01) | LOC: COVID19 15:19 | PROVIDERS: ATTEND Internal Medicine | DX: U07.1 COVID-19 (principal) ==

== ENCOUNTER 2022-01-18 08:03 | Emergency (ER) | payer OTHER ==
[2022-01-18 08:50] LABS: BASO % 0.5 % (0.0-1.0); HEMATOCRIT 30.6 % (37.0-47.0); LYMPH % 11.7 % (27.0-41.0); MEAN CELL VOLUME 87.4 fl (81.0-99.0); MEAN CORPUSCULAR HGB 28.9 pg (27.0-31.0); MEAN PLATELET VOLUME 9.4 fl (9.6-12.3); MONO # 0.4 10*3/uL (0.1-1.0); MONO % 3.9 % (3.0-9.0); NEUT # 7.4 10*3/uL (2.3-7.9); NEUT % 83.3 % (47.0-73.0); PLATELET COUNT AUTOMATED 305 10*3/uL (130-400); RED CELL DISTRI WIDTH 13.4 % (0-14.5); WHITE BLOOD COUNT 8.9 10*3/uL (4.8-10.8)
[2022-01-18 09:05] LABS: ALKALINE PHOSPHATASE 61 U/L (45-117); BUN 39 mg/dl (7-24); CHLORIDE 109 mmol/L (98-107); CREATININE 0.77 mg/dL (0.55-1.02); LIPASE 77 U/L (73-393); POTASSIUM 4.8 mmol/L (3.5-5.1); SGOT/AST 11 IU/L (3-35); SGPT/ALT 16 U/L (12-78); SODIUM 142 mmol/L (136-145)
[2022-01-18 09:32] LABS: BILIRUBIN Negative (Negative); BLOOD Negative (Negative); CLARITY Clear (Clear); COLOR Yellow (Yellow); GLUCOSE Negative (Negative); KETONE Negative (Negative); LEUKO ESTERASE Trace (Negative); NITRITE Negative (Negative); PH 5.5 (4.5-8.0); SPECIFIC GRAVITY 1.025 (1.001-1.030)
[2022-01-18 09:42] LABS: EPITHELIAL CELLS 31-40
[2022-01-18 09:43] LABS: BACTERIA 1+; RBC 0-2 rbc/hpf (0-2); WBC 0-2 wbc/hpf (0-5)
[2022-01-18] MEDS ORDERED: FERROUS GLUCON324 MG PO (15:14)
[2022-01-18] MEDS ORDERED: CARAFATE1 G1 PO (15:14)
[2022-01-18] MEDS ORDERED: ZOFRAN4 MG PO (15:14)
[2022-01-18] MEDS ORDERED: PROTONIX TR40 M1 PO (15:14)
[2022-01-18] MEDS ORDERED: ANUCORT-HC25 MG R (15:14)
== END 2022-01-18 15:19 | disposition home or self-care (01) ==
LOC: ED 08:03
PROVIDERS: Emergency Medicine
DX: K29.01 Acute gastritis with bleeding (principal); K64.9 Unspecified hemorrhoids; Z79.899 Other long term (current) drug therapy; Z90.49 Acquired absence of other specified parts of digestive tract

== ENCOUNTER 2022-06-15 18:31 | Emergency (ER) | payer SELFPAY ==
[~2022-06-15] VITALS: Wt 99.8 kg
[~2022-06-15 18:31] MED LIST changes: +ANUCORT-HC25 MG R; +CARAFATE1 G1 PO; +FERROUS GLUCON324 MG PO; +PROTONIX TR40 M1 PO; +ZOFRAN4 MG PO
[2022-06-15 19:15] LABS: BASO % 0.7 % (0.0-1.0); HEMATOCRIT 37.9 % (37.0-47.0); LYMPH # 0.6 10*3/uL (1.3-4.4); LYMPH % 11.1 % (27.0-41.0); MEAN CELL VOLUME 84.2 fl (81.0-99.0); MEAN CORPUSCULAR HGB 27.3 pg (27.0-31.0); MEAN CORPUSCULAR HGB CONC 32.5 g/dl (33.0-37.0); MEAN PLATELET VOLUME 8.9 fl (9.6-12.3); MONO # 0.3 10*3/uL (0.1-1.0); MONO % 6.1 % (3.0-9.0); NEUT # 4.6 10*3/uL (2.3-7.9); NEUT % 81.7 % (47.0-73.0); PLATELET COUNT AUTOMATED 275 10*3/uL (130-400); RED CELL DISTRI WIDTH 14.8 % (0-14.5); WHITE BLOOD COUNT 5.6 10*3/uL (4.8-10.8)
[2022-06-15 19:31] LABS: ALKALINE PHOSPHATASE 83 U/L (45-117); BUN 8 mg/dl (7-24); CHLORIDE 109 mmol/L (98-107); CREATININE 0.87 mg/dL (0.55-1.02); POTASSIUM 3.8 mmol/L (3.5-5.1); SGPT/ALT 21 U/L (12-78); SODIUM 141 mmol/L (136-145); TOTAL PROTEIN 6.9 gm/dL (6.4-8.2)
== END 2022-06-15 20:24 | disposition home or self-care (01) ==
LOC: ED 18:31
PROVIDERS: Nurse Practitioner Family
DX: U07.1 COVID-19 (principal); Z79.899 Other long term (current) drug therapy

== ENCOUNTER 2022-12-25 19:38 | Emergency (ER) | payer OTHER ==
[~2022-12-25] VITALS: Ht 157.4 cm; Wt 97.5 kg
[2022-12-25] MEDS ORDERED: PREDNISONE50 MG PO (21:20)
== END 2022-12-25 21:31 | disposition home or self-care (01) ==
LOC: ED 19:38
DX: M54.50 Low back pain, unspecified (principal); M25.551 Pain in right hip; Z79.899 Other long term (current) drug therapy; Z90.49 Acquired absence of other specified parts of digestive tract; Z98.84 Bariatric surgery status; Z87.891 Personal history of nicotine dependence

== ENCOUNTER → 2023-05-19 | Outpatient (CLI) | payer OTHER ==
[~2023-05-19] MED LIST changes: +PREDNISONE50 MG PO
== END | disposition home or self-care (01) ==
LOC: RAD 15:32
PROVIDERS: ATTEND Podiatrist Foot & Ankle Surgery
DX: M19.071 Primary osteoarthritis, right ankle and foot (principal); M77.31 Calcaneal spur, right foot

== ENCOUNTER → 2024-11-10 | Outpatient (CLI) | payer OTHER | END | disposition home or self-care (01) | LOC: MAMMO 11-08 10:30 | PROVIDERS: ATTEND Nurse Practitioner Family | DX: Z12.31 Encounter for screening mammogram for malignant neoplasm of breast (principal) ==

== ENCOUNTER → 2025-04-22 | Outpatient (CLI) | payer OTHER | END | disposition home or self-care (01) | LOC: ORTHO 04-21 11:23 | PROVIDERS: ATTEND Orthopaedic Surgery | DX: M18.11 Unilateral primary osteoarthritis of first carpometacarpal joint, right hand (principal); M79.644 Pain in right finger(s) ==

== ENCOUNTER → 2025-06-23 | Day surgery (SDC) | payer OTHER ==
[2025-06-22 14:16] LABS: BUN 9 mg/dl (9-23)
[~2025-06-23] VITALS: Ht 157.4 cm; Wt 97.5 kg
[~2025-06-23] MED LIST changes: +ACETAMINOPHEN 100 ML IV ONE; +ADVIL200 M1 PO; +ALLERGY RELIEF10 M4 PO; +HYDROXYZINE PAM50 MG PO; +Lactated Ringer's Solution 1,000 ML IV ONE; +Lidocaine Hydrochloride 30 ML VIAL ONE; +Lidocaine Hydrochloride 5 ML VIAL IV ONE; +Ondansetron Hydrochloride 4 MG/2 ML VIAL IV ONE; +PAROXETINE20 MG PO; +PROPOFOL 200 MG/20 ML VIAL IV ONE; +ceFAZolin sodium/sodium chlor 10 ML IV ONE
[2025-06-23 08:23] VITALS: BP 141/76
[2025-06-23 09:43] VITALS: BP 115/66
[2025-06-23 09:58] VITALS: BP 126/67
[2025-06-23 10:03] VITALS: BP 119/65
== END | disposition home or self-care (01) ==
LOC: SDC 06-21 09:30
PROVIDERS: ATTEND Orthopaedic Surgery
DX: G56.01 Carpal tunnel syndrome, right upper limb (principal); M65.341 Trigger finger, right ring finger; K21.9 Gastro-esophageal reflux disease without esophagitis; I10 Essential (primary) hypertension; G47.30 Sleep apnea, unspecified; E78.5 Hyperlipidemia, unspecified; E55.9 Vitamin D deficiency, unspecified; Z98.890 Other specified postprocedural states; Z98.51 Tubal ligation status; Z87.891 Personal history of nicotine dependence; Z79.899 Other long term (current) drug therapy; E78.00 Pure hypercholesterolemia, unspecified; J45.909 Unspecified asthma, uncomplicated